=== PATIENT | male | born 1990 | race Two or more races ===

== ENCOUNTER 2018-04-16 11:54 | Observation (INO) | payer OTHER ==
--- NOTE | 2018-04-16 12:22 | PDOC ---
History of Present Illness - General Chief Complaint: Seizure Stated Complaint: SYNCOPE Time Seen by Provider: 04/16/18 12:21 History Source: Patient, Parent(s) Exam Limitations: No Limitations - History of Present Illness Initial Comments: 04/16/18 13:01 27M no PMH presents to the ER via EMS after his father found him laying on the floor. 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 The patient's arm started to shake and that was the last thing he remembers. His father heard a loud plop on the ground and ran to his son's room and found his son on the floor. The next thing the patient remembers is EMS waking him up. He denies nausea vomiting fever chest pain or shortness of breath. He denies loss of bowel or bladder control. He does not know if he hit his head but he did hit his lip and it is sore. The patient's father states he had an episode like this about 2 weeks ago where he was difficult to wake up from bed. The patient states his arm shook at that time as well. He endorses he feels cold at times and some chills. He denies daily alcohol use, he denies drug use, he denies being on any medications. He endorses a heaviness in his legs occasionally. Past History - Travel Traveled outside of the country in the last 30 days: No Close contact w/someone who was outside of country & ill: No - Past Medical History Allergies/Adverse Reactions: Allergies Allergy/AdvReac Type Severity Reaction Status Date / Time No Known Allergies Allergy Verified 04/16/18 12:19 Review of Systems - Review of Systems Constitutional: Yes: Chills. No: Symptoms Reported, See HPI, Diaphoresis, Fever , Loss of Appetite, Malaise, Night Sweats, Weakness, Weight Stable, Unintentional Wgt. Loss, Unexplained wgt Loss, Other HEENTM: No: Symptoms Reported, See HPI, Eye Pain, Blurred Vision, Tearing, Recent change in vision, Double Vision, Cataracts, Ear Pain, Ocular Prothesis, Ear Discharge, Nose Pain, Nose Congestion, Tinnitus, Nose Bleeding, Hearing Loss , Throat Pain, Throat Swelling, Mouth Pain, Dental Problems, Difficulty Swallowing, Mouth Swelling, Other Respiratory: No: Symptoms reported, See HPI, Cough, Orthopnea, Shortness of Breath, SOB with Exertion, SOB at Rest, Stridor, Wheezing, Productive cough, Hemoptysis, Other Cardiac (ROS): No: Symptoms Reported, See HPI, Chest Pain, Edema, Irregular Heart Rate, Lightheadedness, Palpitations, Syncope, Chest Tightness, Other ABD/GI: No: Symptoms Reported, See HPI, Abdominal Distended, Abd. Pain w/ defecation, Blood Streaked Bowels, Constipated, Diarrhea, Difficulty Swallowing , Nausea, Poor Appetite, Poor Fluid Intake, Rectal Bleeding, Vomiting, Indigestion, Abdominal cramping, Tarry Stools, Other : No: Symptoms Reported, See HPI, Burning, Dysuria, Discharge, Frequency, Flank Pain, Hematuria, Incontinence, Pain, Urgency, Testicular Mass, Testicular Swelling, Lesions, Testicular Pain, Other Musculoskeletal: Yes: Other (hevainess in his legs) Integumentary: No: Symptoms Reported, See HPI, Bruising, Change in Color, Change in Hair/Nails, Dryness, Erythema, Flushing, Lesions, Lumps, Pallor, Pruritus, Rash, Sweating, Other Neurological: Yes: Seizure, Tremors Psychiatric: No: Anxiety, Depression, Frequent Crying, Stressors, Sleep Pattern Change, Emotional Problems, Mood Swings, Change in Appetite, Other Endocrine: No: Symptoms Reported, See HPI, Excessive Sweating, Flushing, Intolerance to Cold, Intolerance to Heat, Increased Hunger, Increased Thirst, Increased Urine, Unexplained Weight Gain, Unexplained Weight Loss, Change in Weight, Other Hematologic/Lymphatic: No: Symptoms Reported, See HPI, Anemia, Blood Clots, Easy Bleeding, Easy Bruising, Bleeding Diathesis, Lymph Node Abnormalities, Swollen Glands, Other *Physical Exam - Physical Exam General Appearance: Yes: Appropriately Dressed, Obese. No: Apparent Distress HEENT: positive: EOMI, GISELA, Normal ENT Inspection, Symmetrical Neck: positive: Trachea midline, Supple Respiratory/Chest: positive: Lungs Clear, Normal Breath Sounds Cardiovascular: positive: Regular Rhythm, Tachycardia Gastrointestinal/Abdominal: positive: Soft. negative: Tender Musculoskeletal: positive: Normal Inspection. negative: CVA Tenderness Extremity: positive: Normal Capillary Refill, Normal Inspection, Normal Range of Motion Integumentary: positive: Dry, Other (hot) Neurologic: positive: self defense instructor II-XII NML intact, Fully Oriented, Alert ED Treatment Course - LABORATORY CBC & Chemistry Diagram: 04/16/18 12:54 04/16/18 13:00 Medical Decision Making - Medical Decision Making 04/16/18 13:39 27M with no PMH presents after a syncopal episode likely from a partial complex seizure vs syncope, Patient has a rectal temperature of 100.3 but this may be from the seizure. Patient is also tachycardic Will do: CBC CMP Mg Cardiac profile including CK TSH Alcohol level Utox IVF got 1 liter by EMS will give second liter now EKG CXR IV tylenol 04/16/18 18:33 CT head WNL Patient remains tachycardic hospitalist called for admission 04/16/18 19:22 patient accepted for admission. hospitalist team will follow up all ancillary studies and will assume care for the patient *DC/Admit/Observation/Transfer Diagnosis at time of Disposition: Seizure - Discharge Dispostion Decision to Admit order: Yes - Referrals - Patient Instructions - Post Discharge Activity
[2018-04-16 12:25] VITALS: BMI 33.8
[2018-04-16] MEDS ORDERED: SODIUM CHLORIDE 1,000 ML IV STA (13:18)
[2018-04-16 13:39] LABS: BASO % 0.2 % (0-2.0); EOS % 0.4 % (0-4.5); HEMATOCRIT 46.8 % (35.4-49); HEMOGLOBIN 15.6 GM/dL (11.7-16.9); LYMPH % 9.6 % (8-40); MCH 29.7 pg (25.7-33.7); MCHC 33.4 g/dl (32.0-35.9); MEAN CELL VOLUME 88.8 fl (80-96); MEAN PLT VOLUME 9.5 fl (7.5-11.1); MONO % 7.8 % (3.8-10.2); PLATELET COUNT 231 K/MM3 (134-434); RBC 5.27 M/mm3 (4.00-5.60); RDW 14.1 % (11.9-15.9); WHITE BLOOD COUNT 15.8 K/mm3 (4.0-10.0)
[2018-04-16] MEDS ORDERED: ACETAMINOPHEN INJECTION 100 ML IVPB ONE (14:05)
[2018-04-16] MEDS ORDERED: ACETAMINOPHEN 1000 MG/100 ML VIAL (NON FORMULARY) IVPB ONE (14:08)
[2018-04-16 14:19] LABS: ALBUMIN 3.8 g/dl (3.4-5.0); ANION GAP 9 (8-16); BILIRUBIN,TOTAL 0.2 mg/dL (0.2-1.0); BLOOD UREA NITROGEN 17 mg/dL (7-18); CALCIUM 8.5 mg/dL (8.5-10.1); CHLORIDE 105 mmol/L (98-107); CO2 25 mmol/L (21-32); CREATININE 1.2 mg/dL (0.7-1.3); GLUCOSE,RANDOM 110 mg/dL (74-106); SGPT/ALT 33 U/L (12-78); SODIUM 139 mmol/L (136-145); TOT PROT 7.4 g/dl (6.4-8.2)
[2018-04-16 14:22] LABS: ALK PHOS 102 U/L (45-117)
[2018-04-16 14:26] LABS: POTASSIUM 3.7 mmol/L (3.5-5.1); SGOT/AST 22 U/L (15-37)
--- NOTE | 2018-04-16 14:35 | PDOC ---
Attending Attestation - Resident Resident Name: Isaak Ghosh - ED Attending Attestation I have performed the following: I have examined & evaluated the patient, The case was reviewed & discussed with the resident, I agree w/resident's findings & plan - HPI HPI: 04/16/18 14:31 Healthy 27-year-old male with no significant past medical history presents with episode of loss of consciousness/unresponsiveness. Patient was in his usual state of normal health, was in his room and recalls having uncontrollable movements of his left hand/arm and next recalls awakening with EMS at his side in his room. Father heard the fall, went to the room immediately and found the patient unresponsive with a cut to his lip. slowly became verbal and oriented. no murphy, no recent f/c, no recent focal neuro complaints. did have a prior episode with his L arm moving uncontrollably last week. denies etoh or substance abuse, no family h/o seizures - Physicial Exam PE: 04/16/18 14:33 notable tachycardia to 115, rectal 100.3 well appearing, comfortable in stretcher and fully oriented no tremors or tongue fasciculations dentition intact, superficial inner lower lip abrasion neck supple and nontender neuro intact - Medical Decision Making 04/16/18 14:34 27-year-old male with syncope versus seizure, mild face/lip injury. Tachycardia on arrival but otherwise hemodynamically stable, well-appearing, and neurologically intact. Question arrhythmia but the initial focal left upper extremity symptoms suggest seizure. CT head to rule out focal abnormality Labs, EKG, court monitor IV fluid rehydration Reassess, will discuss with neurology, consider observation on telemetry Heart Score/ECG Review #1 ECG reviewed & interpreted by me at: 12:06 General ECG Interpretation: Sinus Rhythm (tachy at 117), Normal Intervals (qtc 421), No acute ischemic changes
[2018-04-16] MEDS ORDERED: SODIUM CHLORIDE 1,000 ML IV SCH (20:00)
--- NOTE | 2018-04-16 21:03 | HP ---
CHIEF COMPLAINT:loss of consciousness PCP: HISTORY OF PRESENT ILLNESS: Patient is a 27 year old male with no significant past medical history, presented with loss of consciousness. This morning, patient got off from a stressful night at work, had a bottle of beer and some food and played video games. While playing for a few minutes, patient noted uncontrollable shaking of left hand/arm which lasted a few minutes and he suddenly blacked out. Patient started to regain consciousness when EMS arrived. He was confused and disoriented, and did not remember anything that had happened after he blacked out. As per the father, he heard a loud sound in the bedroom, went up there immediately and noted his son lying on the floor, unresponsive, with a bleeding cut to his lip. He immediately called 911. Before the EMS arrived, father was trying to wake the patient up, patient was in and out of wakefulness, talking incoherently. All these happened for about 10 minutes. Patient also reported having the same episode of his left hand shaking 2 weeks ago. He is unsure of whether he lost consciousness at this time but reported some confusion afterwards. Patient denies headache, dizziness, fever, chills, nausea or vomiting. He denies constipation, diarrhea, and dysuria. ER course was notable for: (1)WBC 15.8, CK 392 (2)Head CT - normal, CXR - no active pulmonary disease Recent Travel:denies any recent travel PAST MEDICAL HISTORY: None PAST SURGICAL HISTORY: None Social History: Smoking:nonsmoker Alcohol:occasional EtOH use Drugs: denies illicit drug use Family History: Father - HTN, DM Mother - Noncontributory Allergies No Known Allergies Allergy (Verified 04/16/18 12:19) HOME MEDICATIONS: REVIEW OF SYSTEMS CONSTITUTIONAL: Absent: fever, chills, diaphoresis, generalized weakness, malaise, loss of appetite, weight change HEENT: Absent: rhinorrhea, nasal congestion, throat pain, throat swelling, difficulty swallowing, mouth swelling, ear pain, eye pain, visual changes CARDIOVASCULAR: Absent: chest pain, palpitations, irregular heart rate, lightheadedness, peripheral edema RESPIRATORY: Absent: cough, shortness of breath, dyspnea with exertion, orthopnea, wheezing, stridor, hemoptysis GASTROINTESTINAL: Absent: abdominal pain, abdominal distension, nausea, vomiting, diarrhea, constipation, melena, hematochezia GENITOURINARY: Absent: dysuria, frequency, urgency, hesitancy, hematuria, flank pain, genital pain MUSCULOSKELETAL: Absent: myalgia, arthralgia, joint swelling, back pain, neck pain SKIN: Absent: rash, itching, pallor HEMATOLOGIC/IMMUNOLOGIC: Absent: easy bleeding, easy bruising, lymphadenopathy, frequent infections ENDOCRINE: Absent: unexplained weight gain, unexplained weight loss, heat intolerance, cold intolerance NEUROLOGIC: Absent: headache, focal weakness or paresthesias, dizziness, unsteady gait, seizure, mental status changes, bladder or bowel incontinence PSYCHIATRIC: Absent: anxiety, depression, suicidal or homicidal ideation, hallucinations. PHYSICAL EXAMINATION Vital Signs - 24 hr 04/16/18 12:20 Temperature 97.9 F Pulse Rate 122 H Respiratory 20 Rate Blood Pressure 171/84 O2 Sat by Pulse 100 Oximetry (%) GENERAL: Awake, alert, and fully oriented, in no acute distress. HEAD: Normal with no signs of trauma. EYES: Pupils equal, round and reactive to light, extraocular movements intact, sclera anicteric, conjunctiva clear. EARS, NOSE, THROAT: Ears normal, nares patent, oropharynx clear without exudates. Moist mucous membranes, +wound, lower lip. NECK: Normal range of motion, supple without lymphadenopathy, JVD, or masses. LUNGS: Breath sounds equal, clear to auscultation bilaterally. HEART: Regular rate and rhythm, normal S1 and S2 without murmur, rub or gallop. ABDOMEN: Soft, nontender, not distended, normoactive bowel sounds. MUSCULOSKELETAL: Normal range of motion at all joints. No bony deformities or tenderness. No CVA tenderness. UPPER EXTREMITIES: 2+ pulses, warm, well-perfused. No cyanosis. No clubbing. No peripheral edema. LOWER EXTREMITIES: 2+ pulses, warm, well-perfused. No calf tenderness. No peripheral edema. NEUROLOGICAL: Cranial nerves II-XII intact. Normal speech. Normal gait. Sensation intact, Motor 5/5. PSYCHIATRIC: Cooperative. Good eye contact. Appropriate mood and affect. SKIN: Warm, dry, normal turgor, no rashes or lesions noted. Laboratory Results - last 24 hr 04/16/18 04/16/18 04/16/18 12:54 12:54 12:54 WBC 15.8 H RBC 5.27 Hgb 15.6 Hct 46.8 MCV 88.8 MCH 29.7 MCHC 33.4 RDW 14.1 Plt Count 231 MPV 9.5 Absolute Neuts (auto) 12.9 Neutrophils % 82.0 Lymphocytes % 9.6 Monocytes % 7.8 Eosinophils % 0.4 Basophils % 0.2 Nucleated RBC % 0 Sodium Potassium Chloride Carbon Dioxide Anion Gap BUN Creatinine Creat Clearance w eGFR Random Glucose Calcium Magnesium Total Bilirubin AST ALT Alkaline Phosphatase Creatine Kinase Creatine Kinase Index CK-MB (CK-2) Troponin I Total Protein Albumin TSH 1.79 Alcohol, Quantitative < 5.0 04/16/18 13:00 WBC RBC Hgb Hct MCV MCH MCHC RDW Plt Count MPV Absolute Neuts (auto) Neutrophils % Lymphocytes % Monocytes % Eosinophils % Basophils % Nucleated RBC % Sodium 139 Potassium 3.7 Chloride 105 Carbon Dioxide 25 Anion Gap 9 BUN 17 Creatinine 1.2 Creat Clearance w eGFR > 60 Random Glucose 110 H Calcium 8.5 Magnesium 2.0 Total Bilirubin 0.2 AST 22 ALT 33 Alkaline Phosphatase 102 Creatine Kinase 392 H Creatine Kinase Index 0.2 CK-MB (CK-2) 0.89 Troponin I < 0.02 Total Protein 7.4 Albumin 3.8 TSH Alcohol, Quantitative CBC, BMP 04/16/18 12:54 04/16/18 13:00 ASSESSMENT/PLAN: Patient is a 27 year old male with no significant past medical history, presented with loss of consciousness. #Seizure: rule out syncope -Patient had shaking of left hand followed by LOC; he had confusion when he regained consciousness. -CK elevated, WBC elevated probably reactive leukocytosis. -Head CT was normal. -Brain MRI ordered. -EEG ordered. -Urine toxicology pending. -1 gm Keppra IV ordered stat followed by Keppra 500mg BID. -bed rest, fall precaution, NPO for tonight. -Rule out cardiac causes -- Echo ordered. -IV fluids started. -Dr. Estrella consult appreciated. #Hypertension -Lisinopril 10 mg qd started. -rule out secondary causes of HTN -Renal artery US ordered. #FEN -IV NS (0.9%) at 75ml/hr started. -electrolytes wnl, routine bmp monitoring. -NPO for now (aspiration precaution). #Prophylaxis -Heparin 5000 units sq tid #Disposition -admit to obs-telemetry -full code Visit type - Emergency Visit Emergency Visit: Yes ED Registration Date: 04/16/18 Care time: The patient presented to the Emergency Department on the above date and was hospitalized for further evaluation of their emergent condition. - New Patient This patient is new to me today: Yes Date on this admission: 04/17/18 - Critical Care Critical Care patient: No Hospitalist Screening - Colonoscopy Questionnaire Colonoscopy Questionnaire: Colonoscopy Questionnaire - Patient: 50 - 75 years old and never had a screening colonoscopy: Unknown History of colon or rectal polyps, or CA: Unknown History of IBD, Crohn's disease or UC: Unknown History of abdominal radiation therapy as a child: Unknown - Relative: 1 with colon or rectal CA, or polyps at age 60 or younger: Unknown Colon or rectal CA diagnosed at age 45 or younger: Unknown Multiple relatives with colon or rectal CA: Unknown - Outcome: Screening Result: Negative Screen
[2018-04-17] MEDS ORDERED: levETIRAcetam 500 MG/5 ML INJECTION VIAL IVPB ONE ×2 (00:45→01:49)
[2018-04-17] MEDS ORDERED: SODIUM CHLORIDE 1,000 ML IV SCH (01:30)
--- NOTE | 2018-04-17 03:06 | PN ---
Teaching Attending Note Name of Resident: Viry Mejia ATTENDING PHYSICIAN STATEMENT I saw and evaluated the patient. Chart, data, imaging reviewed. I reviewed the resident's note and discussed the case with the resident. I agree with the resident's findings and plan as documented. SUBJECTIVE: 27yo obese man BIBA, c/o left upper ext twitching which started 8/7 in am, followed by LOC, unwitnessed, lip biting seen, father ran into room when he heard thump, patient was found on floor disoriented. EMS summoned shortly after. Patient without bladder or bowel incontinence. Had similar episode about one month ago but did not seek medical attention at that time. Pt denied any illicit drug use. 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 OBJECTIVE: Last Vital Signs Temp Pulse Resp BP Pulse Ox 98.3 F 106 H 20 146/84 98 04/16/18 19:39 04/16/18 19:39 04/16/18 19:39 04/16/18 19:39 04/16/18 19:39 General- nad, aaox3 heent- swollen lower lip, no tongue bites seen, atraumatic, perrla neck supple cv- s1+s2+rrr chest- cta b/l abdomen- obese, bs+, nt neuro- no focal neuro deficits appreciated Abnormal Lab Results 04/16/18 04/16/18 12:54 13:00 WBC 15.8 H Random Glucose 110 H Creatine Kinase [address] - no acute lesions EKG -reviewed, nsr ASSESSMENT AND PLAN: 27yo man with likely seizure disorder- partial sz?, probably at least second episode. Differential diagnosis includes syncope but less likely as post ictal state present as well as tongue biting. -admit to telemetry -neurology consult -brain MRI -frequent neuro checks -urine drug screen -EEG -transthoracic echo -fall precautions -NPO -load Keppra 1g IV and then 500mg bid maintenance #HTN -lisinopril 10mg daily -a1c -renin/aldosterone ratio heparin sc for dvt ppx
[2018-04-17 07:20] LABS: HEMATOCRIT 43.7 % (35.4-49); MCH 30.7 pg (25.7-33.7); MCHC 34.3 g/dl (32.0-35.9); MEAN CELL VOLUME 89.4 fl (80-96); MEAN PLT VOLUME 9.1 fl (7.5-11.1); PLATELET COUNT 202 K/MM3 (134-434); RBC 4.89 M/mm3 (4.00-5.60); RDW 14.3 % (11.9-15.9); WHITE BLOOD COUNT 9.1 K/mm3 (4.0-10.0)
--- NOTE | 2018-04-17 08:15 | CON.NEURO ---
Consult - Alcohol/Substance Use Hx Alcohol Use: No - Smoking History Smoking history: Never smoked Have you smoked in the past 12 months: No Home Medications - Allergies Allergies/Adverse Reactions: Allergies Allergy/AdvReac Type Severity Reaction Status Date / Time No Known Allergies Allergy Verified 04/16/18 12:19 - Home Medications Home Medications: Ambulatory Orders NK [No Known Home Medication] 04/16/18 Physical Exam-Neuro Vital Signs: Vital Signs Temperature 98 F 04/17/18 06:00 Pulse Rate 106 H 04/17/18 06:00 Respiratory Rate 18 04/17/18 06:00 Blood Pressure 138/82 04/17/18 06:00 O2 Sat by Pulse Oximetry (%) 98 04/16/18 19:39 Labs: CBC, BMP 04/17/18 06:10 Assessment/Plan cc new onset seizure HPI 27 year old male no significant medical history. 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 During last one week, he has two episode, where his symptoms started with left hand arm shaking and following by passing out and he also bit his tongue and was confused afterward. There is no witnessed tonic clonic activity. His ct head was normal and wbc was high. Bp was also found to be high. There is no headhace or fever or family history of seizure. There is no other focal seizure, trauma, fever or cancer. PMH as above PSH none SH,ROS, FH reviwed in chart NKDA Neurological Examination Alert oriented x 3 eomi, pupils reactive, no motor weaness sensation is normal reflex are symmetrical ct head is normal Assessmen- Recurrent episode ( two episode ) of seizure in past week, starting with hand shakiness and loc with lip bite. 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
[2018-04-17 08:25] LABS: ANION GAP 6 (8-16); BLOOD UREA NITROGEN 11 mg/dL (7-18); CALCIUM 8.5 mg/dL (8.5-10.1); CHLORIDE 106 mmol/L (98-107); CO2 27 mmol/L (21-32); GLUCOSE,RANDOM 76 mg/dL (74-106); MAGNESIUM 2.1 mg/dL (1.8-2.4); PHOSPHOROUS 3.7 mg/dL (2.5-4.9); POTASSIUM 4.2 mmol/L (3.5-5.1); SODIUM 139 mmol/L (136-145)
--- NOTE | 2018-04-17 09:43 | CON.CARD ---
Consult Consult Specialty:: Cardiology Reason for Consultation:: seizure - History of Present Illness History of Present Illness: Healthy 27-year-old male with no significant past medical history presents with episode of loss of consciousness/unresponsiveness. Patient was in his usual state of normal health, was in his room and recalls having uncontrollable movements of his left hand/arm and next recalls awakening with EMS at his side in his room. Father heard the fall, went to the room immediately and found the patient unresponsive with a cut to his lip. slowly became verbal and oriented. no murphy, no recent f/c, no recent focal neuro complaints. did have a prior episode with his L arm moving uncontrollably last week. denies etoh or substance abuse, no family h/o seizures - History Source History Provided By: Patient, Family Member, Medical Record Limitations to Obtaining History: No Limitations - Alcohol/Substance Use Hx Alcohol Use: No - Smoking History Smoking history: Never smoked Have you smoked in the past 12 months: No Home Medications - Allergies Allergies/Adverse Reactions: Allergies Allergy/AdvReac Type Severity Reaction Status Date / Time No Known Allergies Allergy Verified 04/16/18 12:19 - Home Medications Home Medications: Ambulatory Orders NK [No Known Home Medication] 04/16/18 Review of Systems - Review of Systems Constitutional: reports: No Symptoms Eyes: reports: No Symptoms HENT: reports: No Symptoms Neck: reports: No Symptoms Cardiovascular: reports: No Symptoms Gastrointestinal: reports: No Symptoms Genitourinary: reports: No Symptoms Breasts: reports: No Symptoms Reported Musculoskeletal: reports: No Symptoms Integumentary: reports: No Symptoms Neurological: reports: Seizure Endocrine: reports: No Symptoms Hematology/Lymphatic: reports: No Symptoms Psychiatric: reports: No Symptoms Vital Signs: Vital Signs Temperature 98.8 F 04/17/18 08:00 Pulse Rate 88 04/17/18 08:00 Respiratory Rate 18 04/17/18 08:00 Blood Pressure 140/100 04/17/18 08:00 O2 Sat by Pulse Oximetry (%) 98 04/17/18 08:00 Constitutional: Yes: Well Nourished, No Distress, Calm Eyes: Yes: WNL, Conjunctiva Clear, EOM Intact HENT: Yes: WNL, Atraumatic, Normocephalic Neck: Yes: WNL, Supple, Trachea Midline Respiratory: Yes: WNL, Regular, CTA Bilaterally Gastrointestinal: Yes: WNL, Normal Bowel Sounds Renal/: Yes: WNL Cardiovascular: Yes: WNL, Regular Rate and Rhythm Musculoskeletal: Yes: WNL Extremities: Yes: WNL Integumentary: Yes: WNL Neurological: Yes: WNL, Alert, Oriented ...Motor Strength: WNL Psychiatric: Yes: WNL, Alert, Oriented - Other Data Labs, Other Data: CBC, BMP 04/17/18 06:10 04/17/18 06:10 Troponin, BNP 04/16/18 13:00 Troponin I < 0.02 Troponin, BNP 04/16/18 13:00 Troponin I < 0.02 Laboratory Tests 04/16/18 04/16/18 04/16/18 12:54 12:54 12:54 WBC 15.8 H RBC 5.27 Hgb 15.6 Hct 46.8 MCV 88.8 MCH 29.7 MCHC 33.4 RDW 14.1 Plt Count 231 MPV 9.5 Absolute Neuts (auto) 12.9 Neutrophils % 82.0 Lymphocytes % 9.6 Monocytes % 7.8 Eosinophils % 0.4 Basophils % 0.2 Nucleated RBC % 0 Sodium Potassium Chloride Carbon Dioxide Anion Gap BUN Creatinine Creat Clearance w eGFR Random Glucose Calcium Phosphorus Magnesium Total Bilirubin AST ALT Alkaline Phosphatase Creatine Kinase Creatine Kinase Index CK-MB (CK-2) Troponin I Total Protein Albumin TSH 1.79 Alcohol, Quantitative < 5.0 04/16/18 04/17/18 04/17/18 13:00 06:10 06:10 WBC 9.1 RBC 4.89 Hgb 15.0 Hct 43.7 MCV 89.4 MCH 30.7 MCHC 34.3 RDW 14.3 Plt Count 202 MPV 9.1 Absolute Neuts (auto) Neutrophils % Lymphocytes % Monocytes % Eosinophils % Basophils % Nucleated RBC % Sodium 139 139 Potassium 3.7 4.2 Chloride 105 106 Carbon Dioxide 25 27 Anion Gap 9 6 L BUN 17 11 Creatinine 1.2 1.0 Creat Clearance w eGFR > 60 > 60 Random Glucose 110 H 76 D Calcium 8.5 8.5 Phosphorus 3.7 Magnesium 2.0 2.1 Total Bilirubin 0.2 AST 22 ALT 33 Alkaline Phosphatase 102 Creatine Kinase 392 H Creatine Kinase Index 0.2 CK-MB (CK-2) 0.89 Troponin I < 0.02 Total Protein 7.4 Albumin 3.8 TSH Alcohol, Quantitative Imaging - Results Chest X-ray: Image Reviewed (no i/e) EKG: Image Reviewed (s tachy o/w wnl) Assessment/Plan seizure no evidence of cardiac ds no h/o of syncopy or sudden cardiac in the family neurology consult appreciated echo showed nl LV and EF Bicuspid AV Plan telemetry will obtain CT chest with contrast to r/o aortic aneurysm +/- dissection
--- NOTE | 2018-04-17 09:54 | EKG ---
Test Reason : Blood Pressure : / mmHG Vent. Rate : 117 BPM Atrial Rate : 117 BPM P-R Int : 140 ms QRS Dur : 084 ms QT Int : 302 ms P-R-T Axes : 045 038 005 degrees QTc Int : 421 ms SINUS TACHYCARDIA POSSIBLE LEFT ATRIAL ENLARGEMENT BORDERLINE ECG NO PREVIOUS ECGS AVAILABLE Confirmed by LILA CEVALLOS, IRLANDA ([id number]) on 04/17/2018 9:53:43 AM Referred By: Confirmed By:IRLANDA SHARP MD
[2018-04-17] MEDS ORDERED: LISINOPRIL 10 MG TABLET (FP) PO SCH (10:00)
[2018-04-17] MEDS: levETIRAcetam 500 MG/5 ML INJECTION VIAL IVPB SCH ×2 (11:00→21:32)
--- NOTE | 2018-04-17 14:50 | ECHO ---
Name: STONE POOLE Exam:Adult Echocardiogram Study Date: 04/17/2018 11:38 AM Age: 27 yrs Reason For Study: ef Height: 67 in Weight: 216 lb BSA: 2.1 m2 MMode/2D Measurements & Calculations IVSd: 0.85 cm Ao root diam: 3.1 cm LVIDd: 4.5 cm LA dimension: 3.4 cm LVIDs: 2.9 cm LVPWd: 0.72 cm EDV(Teich): 93.4 ml ESV(Teich): 31.5 ml Doppler Measurements & Calculations MV E max anton: 86.4 cm/sec Med Peak E' Anton: 6.1 cm/sec MV A max anton: 69.6 cm/sec Med E/e': 14.2 MV E/A: 1.2 Lat Peak E' Anton: 10.7 cm/sec MV dec time: 0.14 sec Lat E/e': 8.0 Procedure A two-dimensional transthoracic echocardiogram with color flow and Doppler was performed. Left Ventricle The left ventricular size, thickness and function are normal. The left ventricular ejection fraction is normal. Left Ventricular Filling pattern is normal for age. The left ventricular wall motion is shira l. Right Ventricle The right ventricle is normal in size and function. Atria Normal left and right atrial size and function. Mitral Valve There is mild mitral valve thickening. There is no mitral valve stenosis. There is trace mitral regur gitation. Tricuspid Valve There is mild tricuspid valve thickening. There is no tricuspid stenosis. There was insufficient TR d etected to calculate RV systolic pressure. Aortic Valve The aortic valve is bicuspid. No hemodynamically significant valvular aortic stenosis. No aortic regu rgitation is present. Pulmonic Valve The pulmonic valve is not well visualized. Great Vessels The aortic root is normal size. Pericardium/Pleura There is no pericardial effusion. Interpretation Summary There is trace mitral regurgitation. There was insufficient TR detected to calculate RV systolic pressure. The left ventricular size, thickness and function are normal The left ventricular ejection fraction is normal. The left ventricular wall motion is normal. Left Ventricular Filling pattern is normal for age. The aortic valve is bicuspid. No aortic regurgitation is present. No hemodynamically significant valvular aortic stenosis. MD Mehul Aguirre 04/17/2018 02:49 PM
--- NOTE | 2018-04-17 17:41 | PN ---
Physical Exam: SUBJECTIVE: Patient is a 27 y/o male with no past medical history who presented for LOC. Patient had one episode of this in the past. Patient has no acute complaints. No events overnight. OBJECTIVE: Vital Signs Period Temp Pulse Resp BP Sys/Sotelo Pulse Ox Last 24 Hr 98 F-98.8 F 88-106 18-20 138-146/82-100 98-98 GENERAL: The patient is awake, alert, and fully oriented, in no acute distress. HEAD: Normal with no signs of trauma. EYES: PERRL, extraocular movements intact ENT:cut on lower lip NECK: Trachea midline, full range of motion, supple. LUNGS: Breath sounds equal, clear to auscultation bilaterally HEART: Regular rate and rhythm, S1, S2 ABDOMEN: Soft, nontender, nondistended, normoactive bowel sounds, EXTREMITIES: 2+ pulses, warm, well-perfused, no edema. NEUROLOGICAL: Cranial nerves II through XII grossly intact. 5/5 muscle strength upper and lower bilaterally, sensations intact PSYCH: Normal mood, normal affect. SKIN: Warm, dry, normal turgor, no rashes or lesions noted Laboratory Results - last 24 hr 04/17/18 04/17/18 06:10 06:10 WBC 9.1 RBC 4.89 Hgb 15.0 Hct 43.7 MCV 89.4 MCH 30.7 MCHC 34.3 RDW 14.3 Plt Count 202 MPV 9.1 Sodium 139 Potassium 4.2 Chloride 106 Carbon Dioxide 27 Anion Gap 6 L BUN 11 Creatinine 1.0 Creat Clearance w eGFR > 60 Random Glucose 76 D Calcium 8.5 Phosphorus 3.7 Magnesium 2.1 Active Medications Generic Name Dose Route Start Last Admin Trade Name Freq PRN Reason Stop Dose Admin Sodium Chloride 1,000 mls @ 75 mls/hr 04/17/18 01:30 04/17/18 01:38 Normal Saline - IV 75 mls/hr ASDIR SHAR Administration Levetiracetam 500 mg 04/17/18 10:00 04/17/18 11:00 Keppra Injection - IVPB 500 mg BID SHAR Administration ASSESSMENT/PLAN: Patient is a 27 y/o male with no past medical history who presented for LOC secondary to possible seizure. #LOC 2/2 to possible seizure -Neuro consult, Dr. Estrella; seizure precautions and driving restrictions, follow up as an outpatient - f/u EEG - 500 mg Keppra BID - f/u MRI with and without contrast - Cardio Consult; Dr. Aguirre; obtain chest CT to r/o aortic aneurysm and dissection - Echo: normal LV and EF, bicuspid AV - Chest CT: no evidence of aortic aneurysm or dissection, no acute pathology #HTN - monitor for now FEN: NA controlled diet Dispo: f/u with Dr. Estrella tomorrow, f/u EEG Visit type - Emergency Visit Emergency Visit: Yes ED Registration Date: 04/16/18 Care time: The patient presented to the Emergency Department on the above date and was hospitalized for further evaluation of their emergent condition. - New Patient This patient is new to me today: Yes Date on this admission: 04/17/18 - Critical Care Critical Care patient: No
--- NOTE | 2018-04-17 18:14 | PN ---
Teaching Attending Note Name of Resident: Sheba Morales ATTENDING PHYSICIAN STATEMENT I saw and evaluated the patient. I reviewed the resident's note and discussed the case with the resident. I agree with the resident's findings and plan as documented. SUBJECTIVE: No complaints. OBJECTIVE: Vital Signs Period Temp Pulse Resp BP Sys/Sotelo Pulse Ox Last 24 Hr 98 F-98.8 F 88-106 18-20 138-146/71-100 98-98 HEART: S1S2, RRR LUNGS: Clear ABDOMEN: Obese, soft, non-tender, non-distended, normal BS EXTREMITIES: No edema Laboratory Results - last 24 hr 04/17/18 04/17/18 06:10 06:10 WBC 9.1 RBC 4.89 Hgb 15.0 Hct 43.7 MCV 89.4 MCH 30.7 MCHC 34.3 RDW 14.3 Plt Count 202 MPV 9.1 Sodium 139 Potassium 4.2 Chloride 106 Carbon Dioxide 27 Anion Gap 6 L BUN 11 Creatinine 1.0 Creat Clearance w eGFR > 60 Random Glucose 76 D Calcium 8.5 Phosphorus 3.7 Magnesium 2.1 Current Medications Generic Name Dose Route Start Last Admin Trade Name Freq PRN Reason Stop Dose Admin Levetiracetam 500 mg 04/17/18 10:00 04/17/18 11:00 Keppra Injection - IVPB 500 mg BID SHAR Administration ASSESSMENT AND PLAN: This is a 27 year old man with no significant history who presented to the ED with loss of consciousness 1. Seizure - Continue Keppra - EEG, MRI of brain pending 2. Obesity
[2018-04-18] MEDS ORDERED: levETIRAcetam 500 MG/5 ML INJECTION VIAL IVPB SCH (07:35)
--- NOTE | 2018-04-18 07:38 | PN ---
Progress Note (short form) - Note Progress Note: cc new onset seizure 27 year old male no significant medical history. 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 During last one week, he has two episode, where his symptoms started with left hand arm shaking and following by passing out and he also bit his tongue and was confused afterward. There is no witnessed tonic clonic activity. His ct head was normal and wbc was high. Bp was also found to be high. There is no headhace or fever or family history of seizure. There is no other focal seizure, trauma, fever or cancer. There is area of right parietal lobe 2 cm lesion, non enhancing lesion Neurological Examination Alert oriented x 3 eomi, pupils reactive, no motor weaness sensation is normal reflex are symmetrical ct head is normal mri showed right parietal lobe non enhancing lesion without edema Assessmen- Recurrent episode ( two episode ) of seizure in past week, starting with hand shakiness and loc with lip bite. I suspect new onset seizure, He has small lesion on right parietal lobe lesion , clinically less likley to be encephalitis , as there is no other clinical feature of headhace, loc or fever Plan- increase keppra to 750 mg po bid - Neurosurgery consult outpatient follow up , may need repeat imaging in three month Thanking you so much Fernando Estrella MD
--- NOTE | 2018-04-18 13:42 | PN ---
Progress Note, Physician - Current Medication List Current Medications: Active Medications Levetiracetam (Keppra Injection -) 750 mg IVPB BID SHAR Last Admin: 04/18/18 09:43 Dose: 750 mg - Objective Vital Signs: Vital Signs Temperature 98.0 F 04/18/18 05:00 Pulse Rate 73 04/18/18 05:00 Respiratory Rate 18 04/18/18 05:00 Blood Pressure 116/72 04/18/18 05:00 O2 Sat by Pulse Oximetry (%) 98 04/17/18 20:00 Labs: CBC, BMP 04/17/18 06:10 04/17/18 06:10
[2018-04-18 14:55] LABS: CHOLESTEROL 200 mg/dL (50-200); HDL CHOLESTEROL 26 mg/dL (40-60); TRIGLYCERIDES 220 mg/dL (35-160)
--- NOTE | 2018-04-18 15:21 | DS ---
Physical Exam: SUBJECTIVE: Patient is a 27 y/o male with no past medical history who presented for LOC. Patient had one episode of this in the past. Patient has no acute complaints. OBJECTIVE: Vital Signs Period Temp Pulse Resp BP Sys/Sotelo Pulse Ox Last 24 Hr 98.0 F-98.7 F 73-96 18-18 113-142/59-81 98 PHYSICAL EXAM GENERAL: The patient is awake, alert, and fully oriented, in no acute distress. HEAD: Normal with no signs of trauma. EYES: PERRL, extraocular movements intact ENT:cut on lower lip NECK: Trachea midline, full range of motion, supple. LUNGS: Breath sounds equal, clear to auscultation bilaterally HEART: Regular rate and rhythm, S1, S2 ABDOMEN: Soft, nontender, nondistended, normoactive bowel sounds, EXTREMITIES: 2+ pulses, warm, well-perfused, no edema. NEUROLOGICAL: Cranial nerves II through XII grossly intact. 5/5 muscle strength upper and lower bilaterally, sensations intact PSYCH: Normal mood, normal affect. SKIN: Warm, dry, normal turgor, no rashes or lesions noted LABS Laboratory Results - last 24 hr 04/18/18 06:00 Triglycerides 220 H Cholesterol 200 Total LDL Cholesterol 141 H HDL Cholesterol 26 L HOSPITAL COURSE: Date of Admission:04/16/18 Patient is a 27 y/o male with no past medical history who presented for LOC. He was began on keppra 500 [address]ID. Neurologist, Dr. Estrella saw him and ordered an EEG and MRI. MRI showed a 2cm area of high density in the cortex. Dr. Ochoa, looked at the patients MRI and stated he was stable to be discharged. Patient will follow up with him as an outpatient. Dr. Terry increased the Keppra dose to 750 BID and will also follow up with him as an outpatient. Patient stable to be discharged. Patient had a Chest CT done that showed no coarctation of the aorta and no dissection. Date of Discharge: 04/18/18 Minutes to complete discharge: 35 Discharge Summary Reason For Visit: SEIIZURE Current Active Problems Seizure (Acute) Condition: Improved - Instructions Diet, Activity, Other Instructions: You came in because you had an episode of arm shaking and you lost consciousness. We are treating you for a seizure. You had a test done (EEG) that will help determine if you have a seizure disorder. You must follow up with Dr. Estrella as an outpatient to discuss the results of this EEG. A MRI of your brain was taken and showed a lesion. You should follow up with a neurosurgeon to monitor this lesion and determine further management. You may follow up with Dr. Ochoa and make an appointment within the next week. You will continue to take Keppra 750 mg by mouth twice a day. While you were here you were found to have high blood pressure. At this time you will not be started on medication, but you should follow up with a primary care physician to monitor your blood pressure. Some ways to help lower blood pressure without medication include eating a low sodium diet, exercising at least 30 minutes a day, maintaining low stress level , and getting an appropriate amount of sleep. Please see a primary care physician within one week. Please return to the emergency department if you have any more episodes of loss of consciousness, headache, nausea, vomiting, or chest pain. Referrals: Fernando Estrella MD [Staff Physician] - Derrick Ochoa MD, FAAARMEN [Staff Physician] - Disposition: HOME - Home Medications Comprehensive Discharge Medication List: Ambulatory Orders levETIRAcetam [Keppra -] 750 mg PO BID #180 tablet 04/18/18 This patient is new to me today: No Emergency Visit: No Critical Care patient: No - Discharge Referral Referred to [facility] No
[2018-04-18 15:23] VITALS: BP 151/85; PULSE 104; TEMP 98.6
--- NOTE | 2018-04-18 15:27 | PN ---
Teaching Attending Note Name of Resident: Sheba Morales ATTENDING PHYSICIAN STATEMENT I saw and evaluated the patient. I reviewed the resident's note and discussed the case with the resident. I agree with the resident's findings and plan as documented. SUBJECTIVE: Patient has no complaints. OBJECTIVE: Vital Signs Period Temp Pulse Resp BP Sys/Sotelo Pulse Ox Last 24 Hr 98.0 F-98.7 F 73-104 18-20 113-151/59-85 98 HEART: S1S2, RRR LUNGS: Clear ABDOMEN: Obese, soft, non-tender, non-distended, normal BS EXTREMITIES: No edema Laboratory Results - last 24 hr 04/18/18 06:00 Triglycerides 220 H Cholesterol 200 Total LDL Cholesterol 141 H HDL Cholesterol 26 L Current Medications Generic Name Dose Route Start Last Admin Trade Name Freq PRN Reason Stop Dose Admin Levetiracetam 750 mg 04/18/18 07:35 04/18/18 09:43 Keppra Injection - IVPB 750 mg BID SHAR Administration ASSESSMENT AND PLAN: This is a 27 year old man with no significant history who presented to the ED with loss of consciousness 1. Seizure - EEG pending - MRI of brain shows 2 cm high signal intensity within cortex of mid right parietal lobe involving white matter - Keppra dose increased - Ok for discharge home on Keppra with neurology and neurosurgery follow up 2. Obesity with BMI 33.8
== END 2018-04-18 16:15 | disposition home or self-care (01) ==
LOC: JER 11:54 → JERBED 19:42 → J4W 04-17 13:45
PROVIDERS: ADMIT Internal Medicine; ATTEND Internal Medicine
PROC: 3E033NZ Introduction of Analgesics, Hypnotics, Sedatives into Peripheral Vein, Percutaneous Approach (ICD-10-PCS; principal; 2018-04-16)
PROC: 3E033GC Introduction of Other Therapeutic Substance into Peripheral Vein, Percutaneous Approach (ICD-10-PCS; 2018-04-16)
PROC: 3E0337Z Introduction of Electrolytic and Water Balance Substance into Peripheral Vein, Percutaneous Approach (ICD-10-PCS; 2018-04-16)
DX: G40.89 Other seizures (principal); I10 Essential (primary) hypertension; R00.0 Tachycardia, unspecified; E66.9 Obesity, unspecified; Z68.33 Body mass index [BMI] 33.0-33.9, adult
CPT/HCPCS: 36415; 70450-TC; 70553-TC; 71045-TC-FY; 71275-TC; 80048; 80053; 80061; 80307; 82550; 82553; 83721; 83735; 84100; 84443; 84484; 85025; 85027; 93005; 93010; 93306-TC; 95816; 99285-25; G0378; J0131; J7030

== ENCOUNTER 2020-11-17 12:18 | Emergency (ER) | payer BC, OTHER ==
[2020-11-17 12:27] VITALS: TEMP 98.5; BMI 31.3
[2020-11-17] MEDS ORDERED: LORazepam 2 MG/ML SDV VIAL IM ONE (12:43)
[2020-11-17] MEDS ORDERED: HALOPERIDOL LACTATE 5 MG/ML IM ONE (12:43)
[2020-11-17] MEDS ORDERED: HALOPERIDOL LACTATE 5 MG/ML ONE (12:45)
[2020-11-17] MEDS ORDERED: LORazepam 2 MG/ML SDV VIAL ONE (12:45)
[2020-11-17 13:36] LABS: INR 1.05 (0.83-1.09); PROTHROMBIN TIME (PATIENT) 12.7 SEC (9.7-13.0)
[2020-11-17 13:38] LABS: ACTIVATED PTT 27.8 SECONDS (25.2-36.5)
[2020-11-17 14:05] LABS: CHLORIDE 100 mmol/L (98-107); SODIUM 134 mmol/L (136-145)
[2020-11-17 14:10] LABS: ALBUMIN 3.8 g/dl (3.4-5.0); ANION GAP 10 MMOL/L (8-16); BLOOD UREA NITROGEN 30.1 mg/dL (7-18); CO2 23 mmol/L (21-32); GLUCOSE,RANDOM 160 mg/dL (74-106)
[2020-11-17 14:13] LABS: SGOT/AST 8 U/L (15-37); SGPT/ALT 37 U/L (13-61)
[2020-11-17 14:14] LABS: BILIRUBIN,TOTAL 0.9 mg/dL (0.2-1); TOT PROT 7.1 g/dl (6.4-8.2)
[2020-11-17 14:15] LABS: ALK PHOS 69 U/L (45-117)
[2020-11-17 14:23] LABS: CALCIUM 9.2 mg/dL (8.5-10.1)
[2020-11-17 14:32] LABS: BASO % 0.1 % (0-2.0); HEMATOCRIT 45.4 % (35.4-49); LYMPH % 11.2 % (8-40); MCH 30.9 pg (25.7-33.7); MCHC 35.2 g/dl (32.0-35.9); MEAN PLT VOLUME 8.1 fl (7.5-11.1); MONO % 9.5 % (3.8-10.2); NEUT % 79.2 % (42.8-82.8); PLATELET COUNT 211 K/MM3 (134-434); RBC 5.16 M/mm3 (4.00-5.60); WHITE BLOOD COUNT 10.5 K/mm3 (4.0-10.0)
[2020-11-17] MEDS ORDERED: SODIUM CHLORIDE 0.9% 500 ML INFUS.BAG IV ONE (14:36)
[2020-11-17] MEDS ORDERED: levETIRAcetam 500 MG/5 ML INJECTION VIAL IVPB ONE ×2 (14:47→14:48)
[2020-11-17 16:23] LABS: URINE APPEARANCE CLEAR; URINE BILIRUBIN NEGATIVE (NEGATIVE); URINE COLOR YELLOW; URINE GLUCOSE (UA) NEGATIVE (NEGATIVE); URINE KETONE NEGATIVE (NEGATIVE); URINE LEUK ESTERASE NEGATIVE (NEGATIVE); URINE NITRITE NEGATIVE (NEGATIVE); URINE PROTEIN NEGATIVE (NEGATIVE)
[2020-11-17 16:31] LABS: URINE BARBITURATES NEGATIVE ng/ml (CUTOFF=200); URINE BENZODIAZEPINES NEGATIVE ng/ml (CUTOFF=200)
[2020-11-17 16:33] LABS: METHADONE, UR NEGATIVE ng/ml (CUTOFF=300); OPIATES, URI NEGATIVE ng/ml (CUTOFF=300); PHENCYCLIDINE,URINE NEGATIVE ng/ml (CUTOFF=25)
[2020-11-17 16:37] LABS: COCAINE, UR NEGATIVE ng/ml (CUTOFF=300); URINE AMPHETAMINES NEGATIVE ng/ml (CUTOFF=500)
[2020-11-17 19:05] VITALS: BP 140/93; PULSE 111
== END 2020-11-17 19:05 | disposition short-term general hospital (02) ==
LOC: JER 12:18
PROC: 3E033GC Introduction of Other Therapeutic Substance into Peripheral Vein, Percutaneous Approach (ICD-10-PCS; principal; 2020-11-17)
PROC: 3E023GC Introduction of Other Therapeutic Substance into Muscle, Percutaneous Approach (ICD-10-PCS; principal; 2020-11-17)
DX: R41.82 Altered mental status, unspecified (principal); R60.0 Localized edema
CPT/HCPCS: 36415; 70450-TC; 71045-TC-FY; 80053; 80177; 80307; 81003; 82550; 84443; 84484; 85025; 85610; 85730; 86850; 86900; 86901; 87086; 93005; 93010; 99285-25; C9803; U0003